=== PATIENT | female | born 1985 | race Caucasian/White ===

== ENCOUNTER 2018-06-22 22:37 | Emergency (ER) | payer OTHER ==
[~2018-06-22] VITALS: Ht 170.2 cm; Wt 92.9 kg
[~2018-06-22 22:37] MED LIST: ATARAX,VISTARIL25 MG PO; MEDROL DOSEPAK4 MG PO; NOHOMEMEDS
[2018-06-22] MEDS ORDERED: BACLOFEN10 MG PO (22:46)
[2018-06-22 23:44] LABS: HEMATOCRIT 37.8 % (36.0-46.0); HEMOGLOBIN 13.2 G/DL (11.9-15.5); MCH 29.9 PG (29.0-34.0); MCHC 34.9 G/DL (30.0-36.0); MCV 85.5 FL (83-99); PLATELET COUNT 457 K/uL (156-360); RBC DIS.WIDTH-CV 12.4 % (11.8-14.6); RBC DIS.WIDTH-SD 38.8 % (39-53); RED BLOOD COUNT 4.42 M/uL (3.80-5.20); WHITE BLOOD COUNT 12.7 K/uL (4.1-10.2)
[2018-06-22 23:49] LABS: ALBUMIN 4.5 g/dL (3.2-4.8)
[2018-06-22 23:50] LABS: CHLORIDE 102 mEq/L (99-109); POTASSIUM 3.8 mEq/L (3.7-5.4); SODIUM 138 mEq/L (136-147)
[2018-06-22 23:52] LABS: GLUCOSE 107 mg/dL (70-99); TOTAL PROTEIN 7.1 g/dL (6.4-8.3)
[2018-06-22 23:54] LABS: TOTAL BILIRUBIN 0.5 mg/dL (0.0-1.0)
[2018-06-22 23:55] LABS: ALKALINE PHOSPHATASE 72 IU/L (3-129)
[2018-06-22 23:56] LABS: CREATININE 1.1 mg/dL (0.6-1.3); GFR ESTIMATE (CALCULATED) > 59 mL/min/
[2018-06-22 23:57] LABS: AST (GOT) 12 IU/L (2-34); UREA NITROGEN (BUN) 12 mg/dL (9-23)
[2018-06-22 23:58] LABS: ALT (GPT) 9 IU/L (3-49)
[2018-06-23 00:05] LABS: QUANTITATIVE HCG < 4.0 MIU/ML
[2018-06-23 01:12] LABS: APPEARANCE CLEAR ((CLEAR)); BILIRUBIN NEGATIVE; BLOOD MODERATE; COLOR STRAW ((YELLOW)); GLUCOSE (STRIP) NEGATIVE; KETONES NEGATIVE; LEUKOCYTES NEGATIVE; NITRITE NEGATIVE; PROTEIN (STRIP) NEGATIVE; SPECIFIC GRAVITY 1.011 (1.000-1.030); UROBILINOGEN 0.2 MG/DL (0.2-1.0)
[2018-06-23 01:16] LABS: BACTERIA NONE SEEN /HPF; EPITHELIAL CELLS RARE /HPF; MUCUS TRACE /LPF; RED BLOOD CELLS TNTC /HPF (0-5); UCUL ADDED? YES; WHITE BLOOD CELLS 0-5 /HPF (0-5)
[2018-06-23] MEDS ORDERED: FLOMAX0.4 MG PO (01:41)
[2018-06-23] MEDS ORDERED: NORCO 5/3251 TABLET PO (01:41)
[2018-06-23] MEDS ORDERED: ZOFRAN ODT4 MG PO (01:41)
[2018-06-23 02:04] VITALS: BP 115/69
== END 2018-06-23 02:04 | disposition home or self-care (01) ==
LOC: EME 22:37
PROVIDERS: Physician Assistant Medical
DX: N13.2 Hydronephrosis with renal and ureteral calculous obstruction (principal); M79.7 Fibromyalgia; Z87.442 Personal history of urinary calculi
CPT/HCPCS: 74176; 80053; 81003; 84702; 85027; 87086; 99281; 99285; J1885; J2405; J7030